=== PATIENT | female | born 1960 | race Two or more races ===

== ENCOUNTER 2018-01-23 08:39 | Outpatient (CLI) | payer OTHER | END 2018-01-23 08:43 | disposition home or self-care (01) | LOC: SONOGRAMA 08:39 | DX: E04.2 Nontoxic multinodular goiter (principal) ==

== ENCOUNTER 2022-03-19 06:43 | Day surgery (SDC) | payer OTHER ==
[~2022-03-19] VITALS: Ht 154.9 cm; Wt 86.2 kg
[~2022-03-19 06:43] MED LIST: ADULT LOW DOSE81 M1 PO; ALENDRONATE SOD70 MG PO; ATORVASTATIN CA80 MG PO; FENOFIBRAT PO; FOLIC A PO; GLUMETZA500 MG PO; HYDROCHLOROTHIA25 MG PO; LEVOTHYROXINE100 MC1 PO; TENORMIN25 MG PO
== END 2022-03-19 19:50 | disposition home or self-care (01) ==
LOC: CIR.AMB 06:43
PROVIDERS: ATTEND Surgery
DX: N60.82 Other benign mammary dysplasias of left breast (principal); N62 Hypertrophy of breast; Z88.2 Allergy status to sulfonamides; E11.9 Type 2 diabetes mellitus without complications; E03.9 Hypothyroidism, unspecified; E66.9 Obesity, unspecified; Z79.82 Long term (current) use of aspirin
CPT/HCPCS: 19281; 19301; C1889

== ENCOUNTER 2024-04-17 12:06 | Outpatient (CLI) | payer OTHER | END 2024-04-17 12:13 | disposition home or self-care (01) | LOC: EKG 12:06 | DX: I10 Essential (primary) hypertension (principal); R00.2 Palpitations; J44.1 Chronic obstructive pulmonary disease with (acute) exacerbation ==

== ENCOUNTER 2024-10-10 10:58 | Outpatient (CLI) | payer OTHER | END 2024-10-10 12:16 | disposition home or self-care (01) | LOC: MAMO-SONO 10:58 | PROVIDERS: ATTEND Surgery | DX: N60.11 Diffuse cystic mastopathy of right breast (principal); N60.12 Diffuse cystic mastopathy of left breast; N60.81 Other benign mammary dysplasias of right breast; N60.82 Other benign mammary dysplasias of left breast; E04.1 Nontoxic single thyroid nodule; Z12.31 Encounter for screening mammogram for malignant neoplasm of breast ==